=== PATIENT | female | born 1945 ===

== ENCOUNTER 2016-10-25 09:28 | Day surgery (SDC) | payer MEDICARE, OTHER ==
[2016-10-14 09:28] VITALS: BMI 35.3
[2016-10-25] MEDS ORDERED: Propofol 10 mg/ml Inj (20 ML) ONE (10:44)
[2016-10-25] MEDS ORDERED: Midazolam 2 MG/2 ML VIAL ONE (10:44)
[2016-10-25] MEDS ORDERED: Lidocaine 1% Inj (20ml) ONE (10:45)
[2016-10-25] MEDS ORDERED: Lactated Ringer's 1,000 ML IV SCH (12:15)
[2016-10-25 14:57] VITALS: BP 144/65; PULSE 62; RESP 16; TEMP 98.7; O2SAT 97
== END 2016-10-25 13:40 | disposition home or self-care (01) ==
LOC: ENDO 09:28
PROVIDERS: ATTEND Internal Medicine Gastroenterology
DX: K21.0 Gastro-esophageal reflux disease with esophagitis (principal); K29.50 Unspecified chronic gastritis without bleeding; D12.9 Benign neoplasm of anus and anal canal; K64.8 Other hemorrhoids; I10 Essential (primary) hypertension; E78.5 Hyperlipidemia, unspecified
CPT/HCPCS: 43239; 45380; 45381; 88305; 88312; 88342; J2250; J2704; J7120

== ENCOUNTER 2016-12-12 09:33 | Emergency (ER) | payer MEDICARE, OTHER ==
[2016-12-12 09:33] VITALS: BMI 35.3
[2016-12-12 09:47] VITALS: TEMP 98.6; O2SAT 96
[2016-12-12] MEDS ORDERED: Alum-Mag Hydrox-Simethicone Susp (30 mL) PO STA (10:08)
[2016-12-12] MEDS ORDERED: Sodium Chloride 0.9% 1,000 ML IV STA (10:08)
--- NOTE | 2016-12-12 10:12 | ED PDOC ---
Arrival/HPI - General Chief Complaint: Abdominal Pain Time Seen by Provider: 12/12/16 09:55 Historian: Patient - History of Present Illness Narrative History of Present Illness (Text): 12/12/16 10:03 Lauren Lennon is a 71 year old female, whose past medical history includes hypertension and cholecystectomy, who presents to the emergency department complaining of abdominal pain and burning in her throat for about 2 days. Patient states that she ate a estrella 3 days ago and began to experience abdominal pain. The next day, patient states that her abdominal pain persisted with an associated "hot/cold" sensation in her throat. Patient states that her throat symptoms worsened to a burning sensation. Patient denies chest pain, nausea, vomiting, or any other complaint at this time. PMD: Dr. Pathak Time/Duration: < week (2-3 days) Symptom Onset: Gradual Symptom Course: Worsening Severity Level: Mild Activities at Onset: Light Context: Home Past Medical History - Provider Review Nursing Documentation Reviewed: Yes - Cardiac Hx Hypertension: Yes Hx Pacemaker: No - Pulmonary Hx Respiratory Disorders: No - Neurological Hx Neurological Disorder: No - HEENT Hx HEENT Disorder: No - Renal Hx Renal Disorder: No - Endocrine/Metabolic Hx Hypothyroidism: Yes - Hematological/Oncological Hx Blood Transfusions: No Hx Blood Transfusion Reaction: No - Integumentary Hx Dermatological Disorder: No - Musculoskeletal/Rheumatological Hx Musculoskeletal Disorders: No - Genitourinary/Gynecological Hx Genitourinary Disorders: No - Psychiatric Hx Psychophysiologic Disorder: No Hx Substance Use: No - Surgical History Hx Cholecystectomy: Yes - Anesthesia Hx Anesthesia Reactions: No Hx Malignant Hyperthermia: No - Suicidal Assessment Feels Threatened In Home Enviroment: No Family/Social History - Physician Review Nursing Documentation Reviewed: Yes Family/Social History: No Known Family HX Smoking Status: Never Smoked Hx Alcohol Use: No Hx Substance Use: No Allergies/Home Meds Allergies/Adverse Reactions: Allergies No Known Allergies Allergy (Verified 12/12/16 09:41) Home Medications: Home Meds Medication Instructions Recorded Confirmed Aspirin [Aspir 81] 81 mg PO DAILY 06/25/12 12/12/16 Ranolazine [Ranexa] 500 mg PO BID 06/25/12 12/12/16 Rosuvastatin Calcium [Crestor] 10 mg PO DAILY 06/25/12 12/12/16 Bisoprolol/HCTZ [Ziac 5 MG-6.25 MG] 1 tab PO DAILY 10/14/16 12/12/16 Enalapril Maleate [Vasotec] 5 mg PO DAILY 10/14/16 12/12/16 Levothyroxine [Synthroid] 125 mcg PO DAILY 10/14/16 12/12/16 Omeprazole 20 mg PO DAILY 10/14/16 12/12/16 Review of Systems - Physician Review All systems were reviewed & negative as marked: Yes - Review of Systems Constitutional: absent: Fevers, Night Sweats Eyes: absent: Vision Changes ENT: Other (Burning sensation to throat). absent: Hearing Changes Respiratory: absent: SOB, Cough Cardiovascular: absent: Chest Pain Gastrointestinal: Abdominal Pain. absent: Diarrhea, Nausea, Vomiting Genitourinary Female: absent: Urine Output Changes Musculoskeletal: absent: Back Pain, Neck Pain Skin: absent: Rash, Pruritis Neurological: absent: Headache, Dizziness Endocrine: absent: Polyuria Hemo/Lymphatic: absent: Easy Bleeding Psychiatric: absent: Depression Physical Exam - Physical Exam Narrative Physical Exam (Text): Constitutional: No acute distress. Head: Normocephalic. Atraumatic. Eyes: PERRL. ENT: Moist mucous membranes. No erythema. No exudates. Neck: Supple. Cardiovascular: Regular rate. Chest: No tenderness. Respiratory: Clear to auscultation bilaterally. GI: Soft. Nontender. Nondistended. Back: No CVA tenderness. Musculoskeletal: No tenderness or swelling of extremities. Skin: No rash. Neurologic: Alert, no focal deficit. Vital Signs Reviewed: Yes Vital Signs Temp Pulse Resp BP Pulse Ox 12/12/16 11:27 74 16 127/51 L 96 12/12/16 09:46 98.6 F 77 17 148/72 96 Temperature: Afebrile Blood Pressure: Normal Pulse: Regular Respiratory Rate: Normal Appearance: Positive for: Well-Appearing, Non-Toxic, Comfortable Pain Distress: None Mental Status: Positive for: Alert and Oriented X 3 Medical Decision Making ED Course and Treatment: 12/12/16 10:03 Impression: 71 year old female complaining of abdominal pain and a burning sensation to her throat for 2-3 days. Plan: -- Urinalysis -- Labs -- Maalox, Pepcid, Zofran, and IV Fluids -- Reassess and disposition Progress Notes: EKG: Ordered, reviewed, and independently interpreted the EKG. Rate : 75 BPM Rhythm : NSR Interpretation : No ST-T elevations. Comparison : No previous EKG for comparison. 12/12/16 11:43 Patient states she feels better. No distress in ER. Labs unremarkable. Will discharge home, instructed to follow up with PMD and to return to the ER for worsening pain, fever, vomiting, or any other problem. - Lab Interpretations Lab Results: 12/12/16 10:15 12/12/16 10:15 Lab Results 12/12/16 10:15: Sodium 137, Potassium 4.2, Chloride 100, Carbon Dioxide 29, Anion Gap 12, BUN 13, Creatinine 0.9, Est GFR ( Amer) > 60, Est GFR (Non- Af Amer) > 60, Random Glucose 130 H, Calcium 9.3, Total Bilirubin 1.2, AST 53 H , ALT 52, Alkaline Phosphatase 103, Total Protein 7.7, Albumin 4.1, Globulin 3.6 , Albumin/Globulin Ratio 1.1, Lipase 79 12/12/16 10:15: WBC 9.4, RBC 4.29, Hgb 13.6, Hct 39.9, MCV 93.0, MCH 31.7, MCHC 34.1, RDW 12.9, Plt Count 224, MPV 11.0, Gran % 67.4, Lymph % (Auto) 23.2, Emanuel % (Auto) 5.1, Eos % (Auto) 4.0, Baso % (Auto) 0.3, Gran # 6.31, Lymph # 2.2, Emanuel # 0.5, Eos # 0.4, Baso # 0.03 I have reviewed the lab results: Yes - Medication Orders Current Medication Orders: Discontinued Medications Al Hydrox/Mg Hydrox/Simethicone (Maalox Plus 30 Ml) 30 ml PO STAT STA Stop: 12/12/16 10:09 Last Admin: 12/12/16 10:23 Dose: 30 ml Famotidine (Pepcid) 20 mg IVP STAT STA Stop: 12/12/16 10:09 Last Admin: 12/12/16 10:23 Dose: 20 mg Sodium Chloride (Sodium Chloride 0.9%) 1,000 mls @ 999 mls/hr IV .Q1H1M STA Stop: 12/12/16 11:08 Last Admin: 12/12/16 10:21 Dose: 999 mls/hr Ondansetron HCl (Zofran Inj) 8 mg IVP STAT STA Stop: 12/12/16 10:09 Last Admin: 12/12/16 10:23 Dose: 8 mg - Scribe Statement The provider has reviewed the documentation as recorded by the Reid Tian Provider Scribe Attestation: All medical record entries made by the Scribe were at my direction and personally dictated by me. I have reviewed the chart and agree that the record accurately reflects my personal performance of the history, physical exam, medical decision making, and the department course for this patient. I have also personally directed, reviewed, and agree with the discharge instructions and disposition. Disposition/Present on Arrival - Present on Arrival Any Indicators Present on Arrival: No History of DVT/PE: No History of Uncontrolled Diabetes: No Urinary Catheter: No History of Decub. Ulcer: No History Surgical Site Infection Following: None - Disposition Have Diagnosis and Disposition been Completed?: Yes Diagnosis: Abdominal pain Disposition: HOME/ ROUTINE Disposition Time: 11:44 Patient Plan: Discharge Condition: STABLE Discharge Instructions (ExitCare): Abdominal Pain (ED) Prescriptions: Famotidine/Ca Carb/Mag Hydrox [Pepcid Complete Tablet Chew] 1 each PO BID #28 tab.chew Referrals: Garcia Pathak [Primary Care Provider] - Follow up with primary
[2016-12-12 10:28] LABS: ADD MANUAL DIFF? NO
[2016-12-12 10:44] LABS: BASO # 0.03 K/mm3 (0.0-2.0); BASO % 0.3 % (0.0-3.0); EOS # 0.4 (0.0-0.7); GRAN # 6.31 (1.4-6.5); GRAN % 67.4 % (50.0-68.0); HEMATOCRIT 39.9 % (36.0-48.0); LYMPH # 2.2 (1.2-3.4); LYMPH % 23.2 % (22.0-35.0); MEAN CORPUSCULAR HEMOGLOBIN 31.7 pg (25.0-35.0); MEAN CORPUSCULAR HGB CONC 34.1 g/dl (31.0-37.0); MONO # 0.5 (0.1-0.6); MONO % 5.1 % (1.0-6.0); PLATELET COUNT 224 10^3/uL (120.0-450.0); RED CELL DISTRIBUTION WIDTH 12.9 % (11.5-14.5); WHITE BLOOD COUNT 9.4 10^3/ul (4.5-11.0)
[2016-12-12 10:45] LABS: ALB/GLOB RATIO 1.1 (1.1-1.8); ALKALINE PHOSPHATASE 103 U/L (38-133); ALT/SGPT 52 U/L (7-56); AST/SGOT 53 U/L (15-39); BILIRUBIN,TOTAL 1.2 mg/dL (0.2-1.3); BLOOD UREA NITROGEN 13 mg/dL (7-21); CALCIUM 9.3 mg/dL (8.4-10.5); CARBON DIOXIDE 29 mmol/L (21-33); CHLORIDE 100 mmol/L (98-107); GFR AFRICAN-AMERICAN > 60; GLUCOSE,RANDOM 130 mg/dL (70-110); LIPASE 79 U/L (23-300); POTASSIUM 4.2 mmol/L (3.6-5.0); SODIUM 137 mmol/L (132-148); TOTAL PROTEIN 7.7 g/dL (5.8-8.3)
[2016-12-12 11:28] VITALS: BP 127/51; PULSE 74; RESP 16
[2016-12-12 11:49] LABS: PH,URINE 6.5 (4.7-8.0); URINE BILIRUBIN NEGATIVE (NEGATIVE); URINE BLOOD NEGATIVE (NEGATIVE); URINE GLUCOSE (UA) NEGATIVE (NEGATIVE); URINE KETONE NEGATIVE (NEGATIVE); URINE LEUKOCYTE ESTERASE NEGATIVE Leu/uL (NEGATIVE); URINE PROTEIN NEGATIVE mg/dL (<30 mg/dL); URINE UROBILINOGEN 0.2 E.U./dL (<1 E.U./dL)
[2016-12-12 11:55] LABS: URINE APPEARANCE CLEAR (CLEAR); URINE COLOR YELLOW (YELLOW)
--- NOTE | 2016-12-14 02:06 | CARD ---
APPROVED REPORT EKG Measurement Heart [id number] <Conclusion> Normal sinus rhythm Normal ECG
== END 2016-12-12 11:57 | disposition home or self-care (01) ==
LOC: ED 09:33
DX: R10.9 Unspecified abdominal pain (principal); I10 Essential (primary) hypertension
CPT/HCPCS: 80053; 81003; 83690; 85025; 96361; 96374; 96375; 99283; J2405; J7040

== ENCOUNTER 2018-07-07 11:09 | Emergency (ER) | payer MEDICARE, OTHER ==
[2018-07-07 11:32] VITALS: RESP 18; TEMP 98
[2018-07-07 11:52] VITALS: BMI 29.9
--- NOTE | 2018-07-07 13:14 | ED PDOC ---
Arrival/HPI - General Chief Complaint: Allergic Reaction Time Seen by Provider: 07/07/18 12:08 Historian: Patient - History of Present Illness Narrative History of Present Illness (Text): 07/07/18 13:08 72yo female with pmhx of hypertension, Diabetes, GERD who present with complaint of itchy right and chin itchy and swelling earlier today. states the symptoms is currently resolved. She states she came to ED because she had anaphylactic reaction with ACEI years ago and trying to avoid similar reaction. He is currently however not on any ACEI. She denies fever, chills, nausea, vomiting, drooling, tongue swelling, chest pain, SOB, any other complaint. Past Medical History - Provider Review Nursing Documentation Reviewed: Yes - Cardiac Hx Hypertension: Yes Hx Pacemaker: No - Pulmonary Hx Respiratory Disorders: No - Neurological Hx Neurological Disorder: No - HEENT Hx HEENT Disorder: No - Renal Hx Renal Disorder: No - Endocrine/Metabolic Hx Hypothyroidism: Yes - Hematological/Oncological Hx Blood Transfusions: No Hx Blood Transfusion Reaction: No - Integumentary Hx Dermatological Disorder: No - Musculoskeletal/Rheumatological Hx Musculoskeletal Disorders: No - Genitourinary/Gynecological Hx Genitourinary Disorders: No - Psychiatric Hx Psychophysiologic Disorder: No Hx Substance Use: No - Surgical History Hx Cholecystectomy: Yes - Anesthesia Hx Anesthesia Reactions: No Hx Malignant Hyperthermia: No - Suicidal Assessment Feels Threatened In Home Enviroment: No Family/Social History - Physician Review Nursing Documentation Reviewed: Yes Family/Social History: Unknown Family HX Smoking Status: Never Smoked Hx Alcohol Use: No Hx Substance Use: No Allergies/Home Meds Allergies/Adverse Reactions: Allergies No Known Allergies Allergy (Verified 12/12/16 09:41) Home Medications: Home Meds Medication Instructions Recorded Confirmed Aspirin [Aspir 81] 81 mg PO DAILY 06/25/12 12/12/16 Ranolazine [Ranexa] 500 mg PO BID 06/25/12 12/12/16 Rosuvastatin Calcium [Crestor] 10 mg PO DAILY 06/25/12 12/12/16 Bisoprolol/HCTZ [Ziac 5 MG-6.25 MG] 1 tab PO DAILY 10/14/16 12/12/16 Enalapril Maleate [Vasotec] 5 mg PO DAILY 10/14/16 12/12/16 Levothyroxine [Synthroid] 125 mcg PO DAILY 10/14/16 12/12/16 RX: Omeprazole 20 mg PO DAILY 10/14/16 12/12/16 Review of Systems - Physician Review All systems were reviewed & negative as marked: Yes - Review of Systems Constitutional: Normal Eyes: Normal ENT: Normal Respiratory: Normal Cardiovascular: Normal Gastrointestinal: Normal Genitourinary Female: Normal Musculoskeletal: Normal Skin: Pruritis Neurological: Normal Endocrine: Normal Hemo/Lymphatic: Normal Psychiatric: Normal Physical Exam Vital Signs Reviewed: Yes Vital Signs Temp Pulse Resp BP Pulse Ox 07/07/18 11:10 98 F 65 18 146/66 96 Temperature: Afebrile Blood Pressure: Normal Pulse: Regular Respiratory Rate: Normal Appearance: Positive for: Well-Appearing, Non-Toxic, Comfortable Pain Distress: None Mental Status: Positive for: Alert and Oriented X 3 - Systems Exam Head: Present: Atraumatic, Normocephalic Pupils: Present: PERRL Extroacular Muscles: Present: EOMI Conjunctiva: Present: Normal Mouth: Present: Moist Mucous Membranes. No: Drooling Pharnyx: No: Muffled/Hoarse Voice, Strider Neck: Present: Normal Range of Motion Respiratory/Chest: Present: Clear to Auscultation, Good Air Exchange. No: Respiratory Distress, Accessory Muscle Use Cardiovascular: Present: Regular Rate and Rhythm, Normal S1, S2. No: Murmurs Abdomen: No: Tenderness, Distention, Peritoneal Signs Back: Present: Normal Inspection Upper Extremity: Present: Normal Inspection. No: Cyanosis, Edema Lower Extremity: Present: Normal Inspection. No: Edema Neurological: Present: GCS=15, CN II-XII Intact, Speech Normal Skin: Present: Warm, Dry, Normal Color. No: Rashes Psychiatric: Present: Alert, Oriented x 3, Normal Insight, Normal Concentration Medical Decision Making ED Course and Treatment: 07/07/18 19:14 PT in ED for stated history. she was not in any distress. no stridor. No drooling. No tongue swelling. rapid strep was negative PT is already on Cetrizine at home. Advised to continue with the medication as was directed by her PMD Prednisone 10mg rx give Referred to her PMD - Lab Interpretations Lab Results: Lab Results 07/07/18 12:40: Grp A Beta Strep Ag Negative Disposition/Present on Arrival - Present on Arrival Any Indicators Present on Arrival: No History of DVT/PE: No History of Uncontrolled Diabetes: No Urinary Catheter: No History of Decub. Ulcer: No History Surgical Site Infection Following: None - Disposition Have Diagnosis and Disposition been Completed?: Yes Diagnosis: Pruritus, Sore throat, Allergy Disposition: HOME/ ROUTINE Disposition Time: 13:15 Patient Plan: Discharge Condition: STABLE Discharge Instructions (ExitCare): Itchy Skin Additional Instructions: Follow up with your Doctor Return to ED for any new or worsening symptoms Prescriptions: predniSONE [Prednisone] 10 mg PO DAILY #2 tab Referrals: Garcia Pathak [Family Provider] - Follow up with primary Forms: [facility] ([place])
[2018-07-07 13:56] VITALS: BP 150/87; PULSE 72; O2SAT 98
== END 2018-07-07 14:00 | disposition home or self-care (01) ==
LOC: ED 11:09
DX: J02.9 Acute pharyngitis, unspecified (principal); L29.9 Pruritus, unspecified; T78.49XA Other allergy, initial encounter; X58.XXXA Exposure to other specified factors, initial encounter

== ENCOUNTER 2018-07-31 14:09 | Outpatient (CLI) | payer MEDICARE, OTHER | END 2018-07-31 14:10 | disposition home or self-care (01) | LOC: RAD 14:09 ==